=== PATIENT | male | born 1975 | race Caucasian/White ===

== ENCOUNTER 2017-02-22 10:42 | Observation (INO) | payer OTHER ==
[~2017-02-22] VITALS: Ht 182.9 cm; Wt 122.5 kg
[~2017-02-22 10:42] MED LIST: LISINOPRIL10 MG PO; MEDROL DOSEPAK1 PAC PO
--- NOTE | 2017-02-22 11:20 | ED GENERAL ADULT ---
History of Present Illness General Chief Complaint: Upper Respiratory Sx/Fever Stated Complaint: URI SINCE SAT/BILATERAL HAND SWELLING Source: patient Exam Limitations: no limitations Vital Signs & Intake/Output Vital Signs & Intake/Output Vital Signs Date Time Temp Pulse Resp B/P B/P Pulse O2 O2 Flow FiO2 Mean Ox Delivery Rate 02/22 1425 97.8 99 18 156/89 95 Room Air 02/22 1348 99.0 104 18 159/92 02/22 1348 99.0 104 18 159/92 95 Room Air 02/22 1130 Room Air 02/22 1056 98.2 123 20 153/89 96 Room Air Allergies Coded Allergies: NO KNOWN ALLERGIES (03/16/15) Reconcile Medications Diazepam 5 MG TABLET 1 TAB PO DAILY PRN ANXIETY (Reported) Hydrochlorothiazide 50 MG TABLET 1 TAB PO DAILY WATER PILL (Reported) Metoprolol Tartrate 50 MG TABLET 1 TAB PO BID HEART (Reported) Triage Note: PT PRESENTS TO ER C/O OF URI SYMPTOMS FOR A FEW DAYS. PT ALSO C/O OF HAND SWELLING SINCE YESTERDAY. PT STATES HE HAS NOT TAKEN HIS HCTZ OR METAPROLOL FOR TWO DAYS BECAUSE HE HAS HAD A COLD AND DIDN'T WANT COLD MEDS TO MESS WITH HTN MEDS. PT BP 153/89 Triage Nurses Notes Reviewed? yes Onset: Gradual Duration: day(s): (3) Timing: no prior history Injury Environment: home Severity: moderate Severity Numbers: 8 No Modifying Factors: none HPI: Patient is a 41-year-old male with history of hypertension who takes hydrochlorothiazide and metoprolol daily presenting to the emergency department with chief complaint of upper respiratory congestion, intermittently productive cough of yellow sputum, malaise, dry mouth and bilateral hand swelling has been going on for the past couple days. He reports symptoms started over the weekend with the cough. Also had associated chills and body aches. He's been taking [id number] medication to help with cough so he decided to stop taking his antihypertensive medications for the past 2 days. This morning when he woke up he noticed bilateral hand swelling. He tried taking Benadryl without relief. Denies any itchiness. Denies any trauma to the hands. Denies any history of IV drug abuse. He noticed redness over the palms of his hands several streaking upwards and he was concerned so he decided to come in for evaluation. denies any new exposures. Positive tactile fevers and chills. Reports social alcohol use. Denies drug use or smoking. No history similar episode with hands in the past. Denies any chest pain palpitations or shortness of breath. Positive sinus congestion. Positive runny nose. (HUMA BRITTON) Past History Travel History Traveled to [place] past 21 day No Medical History Any Pertinent Medical History? see below for history Neurological: NONE EENT: NONE Cardiovascular: hypertension Respiratory: NONE Gastrointestinal: NONE Hepatic: NONE Renal: NONE Musculoskeletal: NONE Psychiatric: NONE Endocrine: NONE Blood Disorders: NONE Cancer(s): NONE WHOLESALE ACCOUNT MANAGER/Reproductive: NONE Other Medical Hx: None per patient Tetanus Vaccine: 03/16/15 Surgical History Surgical History: N Psychosocial History What is your primary language Macedonian Tobacco Use: Never used Family History Hx Contributory? No (HUMA BRITTON) Review of Systems Review of Systems Constitutional: Reports: see HPI, chills, fever, malaise. Comments Review of systems: See HPI, All other systems negative. Constitutional, NO weight loss HEENT: No visual changes no sore throat Cardiovascular: No chest pain ,palpitation , orthopnea or ankle swelling Skin, no jaundice no rashes Respiratory: No hemoptysis GI: No nausea no vomiting : No dysuria No hematuria Muscle skeletal: no back pain, no neck pain, Neurologic: No numbness no confusion Psych: No stress anxiety or depression,. Heme/endocrine: No bruising no bleeding no polyuria or polydipsia Immunology: No splenectomy or history of AIDS (HUMA BRITTON) Physical Exam Physical Exam General Appearance: well developed/nourished, no apparent distress, alert, awake , comfortable Comments: Well-developed well-nourished person in no acute distress HEENT: extraocular motion intact, no nystagmus. Pupils equally round and reactive to light and accommodation. Nose is atraumatic. External auditory canal and Tympanic membranes clear. Pharynx is moderately erythematous, no exudates. Clear secretions without difficulty.. No swelling or edema. Dry oral mucosa. Neck: Supple, no lymphadenopathy, normal range of motion without pain or tenderness Back: Nontender, no CVA tenderness. Cardiovascular: Regular rate and rhythms no murmurs rubs or gallops, normal JVP Respiratory: Chest nontender. No respiratory distress.breath sounds diminished to auscultation bilaterally Extremity: Nonpitting edema noted over the hands bilaterally both dorsally and over the palmar aspect. Radial pulses are 2+ bilaterally. No edema appreciated over the lower extremities bilaterally. Pedal pulses are 2+ bilaterally. Limited range of motion of the hand secondary to edema. Unable to make a fist bilaterally. No specific pain with palpation over bilateral hands. Capillary refills intact in upper extremities. There is an erythema that covers both the dorsal and palmar aspect of bilateral hands with streaking noted up bilateral forearms. Streaking extends to the antecubital fossa bilaterally. Warm to palpation over these areas. Neuro: Alert oriented x3, motor sensory normal Skin: See extremity exam, otherwise No other appreciable rash on exposed skin, skin is warm and dry. Psych: Mood and affect is normal, memory and judgment is normal. Core Measures ACS in differential dx? No CVA/TIA Diagnosis: No Severe Sepsis Present: No Septic Shock Present: No (GREGORIO BUSBY,HUMA) Progress Differential Diagnoses I considered the following diagnoses in my evaluation of the patient: Allergic reaction, cellulitis, sepsis, upper respiratory infection, pneumonia, bronchitis , sinusitis Plan of Care: Orders Procedure Date/time Status CBC WITHOUT DIFFERENTIAL 02/23 0600 Active BASIC ELECTROLYTES PLUS BUN&CR 02/23 0600 Active Heart Healthy Diet 02/22 D Active FingerStick- Glucose 02/[address] in observation 02/22 1535 Active ED Holding Orders 02/22 1535 Active Vital Signs 02/22 1535 Active Code Status 02/22 1535 Active Pathway - chart 02/22 1516 Active Patient Data 02/22 1516 Active Code Status 02/22 1516 Complete Add-on Test (ER Only) 02/22 1257 Active GLYCOSYLATED HGB 02/22 1200 Complete URINE DRUG SCREEN FOR ER ONLY 02/22 1137 Complete URINALYSIS 02/22 1137 Complete BLOOD CULTURE 02/22 1136 Active COMPREHENSIVE METABOLIC PANEL 02/22 1136 Complete CBC WITHOUT DIFFERENTIAL 02/22 1136 Complete House Staff 02/22 UNK Active VTE Mechanical Prophylaxis 02/22 UNK Active Vital Signs 02/22 UNK Active Current Medications Sig/Hermes Start time Last Medication Dose Stop Time Status Admin Diazepam 5 MG DAILY 02/23 1000 UNVr (Valium) Hydrochlorothiazide 50 MG DAILY 02/23 1000 UNVr (Hydrodiuril) Methylprednisolone 40 MG Q8 02/22 2200 UNVr (Solumedrol) Metoprolol Tartrate 50 MG BID 02/22 2200 UNVr (Lopressor) Diphenhydramine HCl 50 MG Q6 02/22 1800 UNVr (Benadryl) Insulin Aspart 0 TIDAC 02/22 1700 UNVr (NovoLOG) Famotidine 20 MG DAILY 02/22 1620 UNVr (Pepcid) Sodium Chloride 1,000 ML Q10H 02/22 1615 UNVr (Normal Saline 0.9%) Acetaminophen 650 MG Q6P PRN 02/22 151 UNVr (Tylenol) Acetaminophen 1,000 MG Q6P PRN 02/22 1515 UNVr (Ofirmev) Oxycodone HCl 10 MG Q6P PRN 02/22 151 UNVr (Roxicodone) Laboratory Tests 02/22/17 1257: Urine Opiates Screen < 100.00, Methadone Screen 42, Barbiturate Screen < 60, Ur Phencyclidine Scrn < 6.00, Amphetamines Screen < 100, U Benzodiazepines Scrn > 800 H, Urine Cocaine Screen 75, Urine Cannabis Screen 13.10, Urine Color YEL, Urine Clarity CLEAR, Urine pH 6.0, Ur Specific [place] <= 1.005, Urine Protein NEG, Urine Ketones NEG, Urine Nitrite NEG, Urine Bilirubin NEG, Urine Urobilinogen 0.2, Ur Leukocyte Esterase NEG, Ur Microscopic EXAM NOT REQUIRED, Urine Hemoglobin NEG, Urine Glucose NEG 02/22/17 1200: Anion Gap 14, Estimated GFR > 60, BUN/Creatinine Ratio 18.3, Glucose 178 H, Hemoglobin A1c 7.0 H, Calcium 9.0, Total Bilirubin 1.8 H, AST 38, ALT 64, Alkaline Phosphatase 79, Total Protein 7.7, Albumin 4.4, Globulin 3.3, Albumin/ Globulin Ratio 1.3, CBC w Diff NO MAN DIFF REQ, RBC 5.17, MCV 86.7, MCH 30.3, RDW 13.1, MPV 8.2, Gran % 76.9 H, Lymphocytes % 16.1 L, Monocytes % 6.1, Eosinophils % 0.7, Basophils % 0.2, Absolute Granulocytes 7.5 H, Absolute Lymphocytes 1.6, Absolute Monocytes 0.6, Absolute Eosinophils 0.1, Absolute Basophils 0, PUBS MCHC 34.9 Microbiology 02/22 1208 BLOOD: Blood Culture - RECD 02/22 1200 BLOOD: Blood Culture - RECD Diagnostic Imaging: Viewed by Me: Radiology Read. Discussed w/RAD: Radiology Read. Radiology Impression: PATIENT: VIRY SPENCER PRESENT AGE: 41 PATIENT ACCOUNT NO: [id number] : 73 LOCATION: [facility] ORDERING PHYSICIAN: HUMA BUSBY SERVICE DATE: 02/22/17- EXAM TYPE: RAD - XRY-CHEST XRAY, PA AND LATERAL EXAMINATION: XR CHEST CLINICAL INFORMATION: Cough. Evaluate for pneumonia. COMPARISON: None TECHNIQUE: 2 views of the chest were obtained. FINDINGS: Lungs are symmetrically expanded and without consolidation. There is an equivocal finding of bronchial wall thickening in the perihilar regions. Minimal linear opacity of discoid atelectasis in the superior lingula. Cardiac silhouette is normal in size. The mediastinal and hilar contours are normal. There is no pleural effusion. Bones are unremarkable. IMPRESSION: 1. No evidence of pneumonia. 2. Possible bronchial wall thickening ( airway inflammation) in the perihilar regions. Initial ED EKG: none Comments: 02/22/2017 12:15:46 PM on arrival patient is afebrile, slightly hypertensive, patient has been off meds for 2 days. Patient does have diminished lung sounds with junky cough on exam. Patient will go for a chest x-ray to rule out pneumonia. Patient also does have edema to both hands with red streaking up the antecubital fossa. Unclear with is causing this versus patient is denying any IV drug abuse or new exposures. We will treat as if this is an allergic reaction and cellulitis. Patient getting IV Solu-Medrol, Benadryl and IV clindamycin. Blood cultures, CBC and CMP were sent. We'll reassess patient wants medications are administered. 02/22/2017 1:27:16 PM patient feeling slightly improved after IV hydration , Benadryl, Solu-Medrol and clindamycin. Patient still has worsening red streaks bilaterally on the forearms. No elevation of fever or white count at this time. Very concerned about spreading cellulitis and potentially sepsis. X-ray shows bronchial wall thickening. No signs of pneumonia. Likely bronchitis. 02/22/2017 2:38:57 PM patient will be admitted for observation for questionable allergic reaction versus cellulitis. Patient informed of all lab work results. All questions answered. (HUMA BRITTON) Departure Departure Time of Disposition: 1451 Disposition: STILL A PATIENT Condition: Stable Clinical Impression Primary Impression: Allergic reaction Qualifiers: Encounter type: initial encounter Qualified Code: T78.40XA - Allergy, unspecified, initial encounter Secondary Impressions: Bronchitis Cellulitis Qualifiers: Site of cellulitis: extremity Site of cellulitis of extremity: upper extremity Laterality: unspecified laterality Qualified Code: L03.119 - Cellulitis of unspecified part of limb Hyperglycemia Referrals: ALEN CASTLE MD (PCP/Family) Departure Forms: Customer Survey General Discharge Information Observation Note Spoke With: ALEN CASTLE MD Physician Advisor Notified: JOSTIN VARGAS,ALEXANDRO [address] Patient In: Non-ED OBS Care Area Rationale for Observation: My rational for observation is as follows . Patient requiring IV hydration, may need IV steroids, may need IV antibiotics. Repeat CBC to see if white blood cell count is climbing. Follow temperature. Discharge to send may be medically harmful. (HUMA BRITTON) PA/RN ANGIOGRAPHY Co-Sign Statement Statement: ED Attending supervision documentation- [X] I saw and evaluated the patient. I have also reviewed all the pertinent lab results and diagnostic results. I agree with the findings and the plan of care as documented in the PA's/RN ANGIOGRAPHY's documentation. [] I have reviewed the ED Record and agree with the PA's/RN ANGIOGRAPHY's documentation. [] Additions or exceptions (if any) to the PAs/RN ANGIOGRAPHY's note and plan are summarized below: [] (KAMILAH ALAS DO) Critical Care Note Critical Care Note Critical Care Time: non-applicable (HUMA BRITTON)
[2017-02-22] MEDS ORDERED: METOPROLOL TART50 M1 PO (11:44)
[2017-02-22] MEDS ORDERED: DIAZEPAM5 M1 PO (11:44)
[2017-02-22] MEDS ORDERED: HYDROCHLOROTHIA50 M1 PO (11:45)
[2017-02-22 12:14] LABS: ABSOLUTE BASOPHIL COUNT 0 /CUMM (0.0-0.2); ABSOLUTE EOSINOPHIL COUNT 0.1 /CUMM (0.0-0.7); ABSOLUTE GRANULOCYTE CT 7.5 /CUMM (1.4-6.5); ABSOLUTE LYMPH COUNT 1.6 /CUMM (1.2-3.4); ABSOLUTE MONOCYTE COUNT 0.6 /CUMM (0.10-0.60); BASOPHIL % 0.2 % (0.0-2.0); EOSINOPHIL % 0.7 % (0-5); GRANULOCYTE % 76.9 % (42.2-75.2); HEMATOCRIT 44.9 % (42-52); MEAN CORPUSCULAR HGB 30.3 PG (27.0-31.0); MEAN CORPUSCULAR HGB CONC 34.9 G/DL (33.0-37.0); MEAN CORPUSCULAR VOLUME 86.7 FL (80.0-94.0); MEAN PLATELET VOLUME 8.2 FL (7.4-10.4); PLATELET COUNT 213 /CUMM (130-400); RBC DISTRIBUTION WIDTH 13.1 % (11.5-14.5); RED BLOOD CELL CT 5.17 /CUMM (4.70-6.10); WHITE BLOOD CELL COUNT 9.8 /CUMM (4.8-10.8)
--- NOTE | 2017-02-22 13:25 | RADIOLOGY REPORT ---
EXAMINATION: XR CHEST CLINICAL INFORMATION: Cough. Evaluate for pneumonia. COMPARISON: None TECHNIQUE: 2 views of the chest were obtained. FINDINGS: Lungs are symmetrically expanded and without consolidation. There is an equivocal finding of bronchial wall thickening in the perihilar regions. Minimal linear opacity of discoid atelectasis in the superior lingula. Cardiac silhouette is normal in size. The mediastinal and hilar contours are normal. There is no pleural effusion. Bones are unremarkable. IMPRESSION: 1. No evidence of pneumonia. 2. Possible bronchial wall thickening (airway inflammation) in the perihilar regions.
--- NOTE | 2017-02-22 15:19 | History & Physical ---
See Addendum General Information and HPI MD Statement: I have seen and personally examined VIRY SPENCER and documented this H&P. The patient is a 41 year old M who presented with a patient stated chief complaint of [b/l rednness and swelling]. History of Present Illness: This is a 41 Y/O obese male with past medical history of hypertension who presented to the [facility] with bilateral hand swelling and redness on the forearm started in the morning, from which he woke up. The swelling is nontender but he is not able to flex his fingers. The patient symptoms started on Monday when he started having dry cough for which he takes symptomatic treatment with mild improvement. He did not take any antibiotics. His symptoms have resolved but his redness and swelling started in the morning as mentioned above. He has no recent changes in his soap, shampoo, or body lotion. He he is prone to get allergic reaction and prone to pollen dust allergies. He never experienced any pain like this in the past. Does not recall or gives any history of any new medication. He has been taking metoprolol and hydrochlorothiazide for the last 2 years without any complications He denies any changes in his voice, feeling of being clogged up in the throat. Allergies/Medications Allergies: Coded Allergies: NO KNOWN ALLERGIES (03/16/15) Home Med list Diazepam 5 MG TABLET 1 TAB PO DAILY PRN ANXIETY (Reported) Diphenhydramine HCl (Benadryl Allergy) 12.5 MG/5 ML LIQUID 5 ML PO Q6-8P allergy Hydrochlorothiazide 50 MG TABLET 1 TAB PO DAILY WATER PILL (Reported) Metformin HCl (Metformin HCl ER) 500 MG TAB.ER.24 1 TAB PO DAILY diabetes Please follow up hba1c in 3 months with PCP Methylprednisolone. 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 Home Who Do You Live With? spouse, child Services at Home: None Primary Language: Icelandic Smoking Status: Never Smoked ETOH Use: occasional use Illicit Drug Use: denies illicit drug use, marijuana, the patient takes marijuana for his chronic leg wound Review of Systems Review of Systems Constitutional: Reports: see HPI. Musculoskeletal: Reports: muscle pain, muscle stiffness. Skin: Reports: erythema, rash. Denies: change in hair/nails, dryness, jaundice. Exam & Diagnostic Data Last 24 Hrs of Vital Signs/I&O Vital Signs Date Time Temp Pulse Resp B/P B/P Pulse O2 O2 Flow FiO2 Mean Ox Delivery Rate 02/22 1425 97.8 99 18 156/89 95 Room Air 02/22 1348 99.0 104 18 159/92 02/22 1348 99.0 104 18 159/92 95 Room Air 02/22 1130 Room Air 02/22 1056 98.2 123 20 153/89 96 Room Air Intake & Output 02/22 1600 02/22 0800 02/22 0000 Intake Total 1000 Output Total Balance 1000 Intake, IV 1000 Patient 270 lb Weight Physical Exam General Appearance Alert, Oriented X3, Cooperative Skin erythematous rash on the left forearm Chronic leg laceration status post dog bite one year back on the left leg HEENT Atraumatic, PERRLA Neck Supple, No JVD, No thryomegaly Lymphatic Axillary nl, Cervical nl Cardiovascular Regular Rate, Normal S1, Normal S2 Lungs bilateral decreased airway entry site with wheezing Body Front and Back (Adult) 1) 1+ hand the swelling 2) 2+ swelling 3) Erythematous rash 4) Chronic left leg laceration wound Assessment/Plan Assessment: This is a 40-year-old male with a past medical history of hypertension hyperlipidemia who presented to the [facility] with bilateral hand swelling and redness on the left forearm Vitals at the time of admission showed Blood pressure 156/89, respiration rate of 18, pulse rate of 78, saturation of 96% on room air Labs shows Normal hemoglobin, hematocrit and WBC Basic electrolyte panel showed sodium of 134, potassium of 3.2, normal creatinine and BUNs Glucose of 178, HbA1c of 7 EKG shows normal sinus rhythm Assessment 1. Acute allergic reaction/angioedema of the hand in the absence of any airway obstruction. Most likely trigger for the allergic reaction can be seasonal, [place] dust and didn't recent fumigation at home 2. History of hypertension 3. Incidental finding DIABETES mellitus 4. History of dog bite with chronic laceration on the left leg 5.H/O acute bronchtis treated with conservative mnagemnet at home. Plan observe in for 23 hrs observation. I don't believe that the patient has cellulitis of the forearm but his swelling in the hand is worrisome as is not able to flex his fingers. He needs IV Solu- Medrol and Benadryl IV Solu-Medrol 40 every 8 with the next dose at 10 PM(patient received 125 mg in the ER) IV Benadryl By mouth Pepci NovoLog sliding scale, the patient needs to be discharged on an oral hypoglycemic agent at considering the new finding of HbA1c of 7 Watch off antibiotics for now but if cellulitis worsens can use PO Kelflex. Patient is full code DVT prophylaxis with subcutaneous Lovenox As Ranked By This Provider Problem List: 1. Hyperglycemia 2. Allergic reaction Qualifiers Encounter type: initial encounter Qualified Code: T78.40XA - Allergy, unspecified, initial encounter 3. Bronchitis Core Measures/Miscellaneous Acute Coronary Syndrome ACS Diagnosis: No Cerebrovascular Accident CVA/TIA Diagnosis: No Congestive Heart Failure CHF Diagnosis: No Venous Thromboembolism VTE Risk Factors: Acute medical illness, Age > 40 No [facility] VTE prophylaxis d/t: VTE low risk, No contraindications No VTE Pharm Prophylaxis d/t: VTE low risk, No contraindications VTE Diagnosis: No VTE Type: NONE VTE Confirmed by (Test): NONE Severe Sepsis Severe Sepsis Present: No Septic Shock Septic Shock Present: No Miscellaneous Documentation Attending Case Discussed With: TIN Primary Care Physician: ALEN CASTLE MD Patient sees these Specialists NONE Level of Patient Care: General Medicine
[2017-02-22] MEDS ORDERED: METFORMIN HCL500 M2 PO (17:00)
--- NOTE | 2017-02-22 17:02 | Patient Discharge Instructions ---
Discharge Instructions General Discharge Information You were seen/treated for: -Swelling of hands, most likely allergic reaction -Left arm rash -Newly diagnosed diabetes mellitus, please start taking metformin Special Instructions: Please follow up with PCP in 1 week Please check your hba1c in 3 months Diet Continue normal diet: No Recommended Diet: Diabetic, Heart Healthy Activity Full Activity/No Limits: Yes Acute Coronary Syndrome Inclusion Criteria At DC or during hospital stay patient has or had the following: ACS DIAGNOSIS No Discharge Core Measures Meds if any: Prescribed or Continued at Discharge Meds if any: NOT Prescribed or Continued at Discharge Congestive Heart Failure Inclusion Criteria At DC or during hospital stay patient has or had the following: CHF DIAGNOSIS No Discharge Core Measures Meds if any: Prescribed or Continued at Discharge Meds if any: NOT Prescribed or Continued at Discharge Cerebrovascular accident Inclusion Criteria At DC or during hospital stay patient has or had the following: CVA/TIA Diagnosis No Discharge Core Measures Meds if any: Prescribed or Continued at Discharge Meds if any: NOT Prescribed or Continued at Discharge Venous thromboembolism Inclusion Criteria VTE Diagnosis No VTE Type NONE VTE Confirmed by (Test) NONE Discharge Core Measures - Per Current guidelines, there needs to be overlap - treatment for the first 5 days of Warfarin therapy. - If discharged on Warfarin prior to 5 days of - overlap therapy, the patient will need to be - assessed for post discharge needs including - *Post discharge parental anticoagulation - *Warfarin and/or parental anticoagulation education - *Follow up date to check INR post discharge At least 5 days overlap therapy as Inpatient No Meds if any: Prescribed or Continued at Discharge Note: Overlap Therapy is Warfarin and Anticoagulant Meds if any: NOT Prescribed or Continued at Discharge
--- NOTE | 2017-02-22 19:09 | PN- Att Addend ---
Attending Addendum Attending Brief Note 41-year-old white male with history of hypertension on medications she hasn't taken 2 days because of "cold symptoms. One day he noticed swelling of both hands and red cummins going up the wrist to the forearm with no cuts. No fever patient came to the ER blood pressure was slightly elevated medications were given, his sugar was slightly elevated to potassium a little low but his white count is normal and no elevated eosinophils. The differentials are cellulitis versus an allergic reaction. In the ER he got IV steroids and IV antibiotics and Benadryl. He will be kept on observation and reevaluated in the morning need workup for allergies Laboratory Tests 02/22 02/22 1257 1200 Chemistry Sodium (137 - 145 mmol/L) 135 L Potassium (3.5 - 5.1 mmol/L) 3.2 L Chloride (98 - 107 mmol/L) 94 L Carbon Dioxide (22 - 30 mmol/L) 27 Anion Gap (5 - 16) 14 BUN (9 - 20 mg/dL) 11 Creatinine (0.7 - 1.2 mg/dL) 0.6 L Estimated GFR (>60 ml/min) > 60 BUN/Creatinine Ratio (7 - 25 %) 18.3 Glucose (65 - 99 mg/dL) 178 H Hemoglobin A1c (4.2 - 5.8 %) 7.0 H Calcium (8.4 - 10.2 mg/dL) 9.0 Total Bilirubin (0.2 - 1.3 mg/dL) 1.8 H AST (17 - 59 U/L) 38 ALT (21 - 72 U/L) 64 Alkaline Phosphatase (< 127 U/L) 79 Total Protein (6.3 - 8.2 g/dL) 7.7 Albumin (3.5 - 5.0 g/dL) 4.4 Globulin (1.9 - 4.2 gm/dL) 3.3 Albumin/Globulin Ratio (1.1 - 2.2 %) 1.3 Hematology CBC w Diff NO MAN DIFF REQ WBC (4.8 - 10.8 /CUMM) 9.8 RBC (4.70 - 6.10 /CUMM) 5.17 Hgb (14.0 - 18.0 G/DL) 15.7 Hct (42 - 52 %) 44.9 MCV (80.0 - 94.0 FL) 86.7 MCH (27.0 - 31.0 PG) 30.3 RDW (11.5 - 14.5 %) 13.1 Plt Count (130 - 400 /CUMM) 213 MPV (7.4 - 10.4 FL) 8.2 Gran % (42.2 - 75.2 %) 76.9 H Lymphocytes % (20.5 - 51.1 %) 16.1 L Monocytes % (1.7 - 9.3 %) 6.1 Eosinophils % (0 - 5 %) 0.7 Basophils % (0.0 - 2.0 %) 0.2 Absolute Granulocytes (1.4 - 6.5 /CUMM) 7.5 H Absolute Lymphocytes (1.2 - 3.4 /CUMM) 1.6 Absolute Monocytes (0.10 - 0.60 /CUMM) 0.6 Absolute Eosinophils (0.0 - 0.7 /CUMM) 0.1 Absolute Basophils (0.0 - 0.2 /CUMM) 0 PUBS MCHC (33.0 - 37.0 G/DL) 34.9 Immunology IgE Pending Toxicology Urine Opiates Screen (>2000 NG/ML) < 100.00 Methadone Screen (>300 NG/ML) 42 Barbiturate Screen (>200 NG/ML) < 60 Ur Phencyclidine Scrn (>25 NG/ML) < 6.00 Amphetamines Screen (>1000 NG/ML) < 100 U Benzodiazepines Scrn (>200 NG/ML) > 800 H Urine Cocaine Screen (>300 NG/ML) 75 Urine Cannabis Screen (>50 NG/ML) 13.10 Urines Urine Color (YEL,AMB,STR) YEL Urine Clarity (CLEAR) CLEAR Urine pH (5.0 - 8.0) 6.0 Ur Specific [place] (1.001 - 1.035) <= 1.005 Urine Protein (NEG,<30 MG/DL) NEG Urine Ketones (NEG) NEG Urine Nitrite (NEG) NEG Urine Bilirubin (NEG) NEG Urine Urobilinogen (0.1 - 1.0 EU/dl) 0.2 Ur Leukocyte Esterase (NEG) NEG Ur Microscopic EXAM NOT REQUIRED Urine Hemoglobin (NEG) NEG Urine Glucose (N MG/DL) NEG
[2017-02-22 19:51] VITALS: BP 122/80
--- NOTE | 2017-02-23 07:01 | Event Note ---
Event Note Event Note: 02/22/17 7pm: Patient was signed out to me by Dr. Anne. We are monitoring for improvement of bilateral hand swelling and erythema s/p steroids. 02/23/17 7am: Patient was comfortably sitting in bed eager to go, reports MARKED improvement in swelling, now he is able to make a fist. No erythema noted on both arms. I saw the patient with Dr. Lopez, and he is stable for discharge on medrol pack. Will also give him benadryl. As blood sugar was noted to be high [phone], will start pt on metformin. Will follow up with Dr. Lopez in 1 week. Diabetic teaching done by housing quality standard inspector. Lancet and glucometer script also given to patient. Pt agree to check his sugar daily.
[2017-02-23 07:06] VITALS: BP 170/80
[2017-02-23] MEDS ORDERED: BENADRYL A12.5 MG/5 PO (08:19)
[2017-02-23] MEDS ORDERED: MEDROL4 M2 PO (08:19)
[2017-02-23 08:33] LABS: ABSOLUTE BASOPHIL COUNT 0 /CUMM (0.0-0.2); ABSOLUTE EOSINOPHIL COUNT 0 /CUMM (0.0-0.7); ABSOLUTE GRANULOCYTE CT 13.4 /CUMM (1.4-6.5); ABSOLUTE LYMPH COUNT 1.1 /CUMM (1.2-3.4); ABSOLUTE MONOCYTE COUNT 0.4 /CUMM (0.10-0.60); BASOPHIL % 0 % (0.0-2.0); EOSINOPHIL % 0 % (0-5); GRANULOCYTE % 89.6 % (42.2-75.2); MEAN CORPUSCULAR HGB 30.6 PG (27.0-31.0); MEAN CORPUSCULAR HGB CONC 34.5 G/DL (33.0-37.0); MEAN CORPUSCULAR VOLUME 88.7 FL (80.0-94.0); MEAN PLATELET VOLUME 8.7 FL (7.4-10.4); PLATELET COUNT 254 /CUMM (130-400); RBC DISTRIBUTION WIDTH 13.3 % (11.5-14.5); RED BLOOD CELL CT 4.84 /CUMM (4.70-6.10)
[2017-02-23 08:55] VITALS: BP 148/90
--- NOTE | 2017-02-23 09:05 | PN- Att Addend ---
Attending Addendum Attending Brief Note Patient feeling and looking much better but the redness in the arms and hands disappeared the swelling is down. Signs are stable blood pressures improved with the medications and changes. Discussed with resident will discharge on a prednisone taper. Follow-up as an outpatient condition is stable Current Medications Sig/Hermes Start time Last Medication Dose Route Stop Time Status Admin Acetaminophen 650 MG Q6P PRN 02/22 1515 AC PO Acetaminophen 1,000 MG Q6P PRN 02/22 1515 AC IV Clindamycin 600 MG ONCE ONE 02/22 1230 DC 02/22 Dextrose/Water 50 ML IV 02/22 1259 1224 Diazepam 5 MG DAILY 02/23 1000 DC PO Diazepam 5 MG DAILY PRN 02/23 0000 AC 02/23 PO 0732 Diphenhydramine HCl 0 .STK-MED ONE 02/22 1833 DC .ROUTE Diphenhydramine HCl 0 .STK-MED ONE 02/22 1831 DC .ROUTE Diphenhydramine HCl 50 MG Q6 02/22 1800 AC 02/23 IV 0549 Diphenhydramine HCl 0 .STK-MED ONE 02/22 1215 DC .ROUTE Diphenhydramine HCl 0 .STK-MED ONE 02/22 1151 DC .ROUTE Diphenhydramine HCl 25 MG ONCE ONE 02/22 1145 DC 02/22 IV 02/22 1146 1221 Enoxaparin Sodium 40 MG DAILY 02/23 1000 AC 02/23 SC 0855 Famotidine 0 .STK-MED ONE 02/22 1635 DC PO Famotidine 20 MG DAILY 02/22 1620 AC 02/23 PO 0855 Hydrochlorothiazide 50 MG DAILY 02/23 1000 AC 02/23 PO 0856 Hydrochlorothiazide 50 MG ONCE ONE 02/22 1330 DC 02/22 PO 02/22 1331 1348 Insulin Aspart 2 UNITS ONCE ONE 02/23 0115 DC 02/23 SC 02/23 0116 0133 Insulin Aspart 2 UNITS ONCE ONE 02/22 2245 DC 02/22 SC 02/22 2246 2249 Insulin Aspart 0 TIDAC 02/22 1700 AC 02/23 SC 0855 Methylprednisolone 40 MG Q8 02/22 2200 AC 02/23 IV 0549 Methylprednisolone 0 .STK-MED ONE 02/22 1151 DC .ROUTE Methylprednisolone 125 MG ONCE ONE 02/22 1145 DC 02/22 IV 02/22 1146 1221 Metoprolol Tartrate 50 MG BID 02/22 2200 AC 02/23 PO 0855 Metoprolol Tartrate 50 MG ONCE ONE 02/22 1330 DC 02/22 PO 02/22 1331 1348 Metoprolol Tartrate 0 .STK-MED ONE 02/22 1330 DC PO Oxycodone HCl 10 MG Q6P PRN 02/22 1515 AC PO Potassium Chloride 0 .STK-MED ONE 02/22 1749 DC PO Potassium Chloride 20 MEQ ONCE ONE 02/22 1745 DC 02/22 PO 02/22 1746 1746 Potassium Chloride 0 .STK-MED ONE 02/22 1258 DC PO Potassium Chloride 40 MEQ ONCE ONE 02/22 1245 DC 02/22 PO 02/22 1246 1300 Sodium Chloride 1,000 ML Q10H 02/22 1615 DC 02/22 IV 2219 Sodium Chloride 1,000 ML BOLUS ONE 02/22 1445 DC 02/22 IV 02/22 1544 1451 Sodium Chloride 1,000 ML BOLUS ONE 02/22 1145 DC 02/22 IV 02/22 1244 1221 Laboratory Tests 02/23/17 0805: CBC w Diff Pending, WBC Pending, RBC Pending, Hgb Pending, Hct Pending, MCV Pending, MCH Pending, RDW Pending, Plt Count Pending, MPV Pending, PUBS MCHC Pending 02/22/17 1257: Urine Opiates Screen < 100.00, Methadone Screen 42, Barbiturate Screen < 60, Ur Phencyclidine Scrn < 6.00, Amphetamines Screen < 100, U Benzodiazepines Scrn > 800 H, Urine Cocaine Screen 75, Urine Cannabis Screen 13.10, Urine Color YEL, Urine Clarity CLEAR, Urine pH 6.0, Ur Specific [place] <= 1.005, Urine Protein NEG, Urine Ketones NEG, Urine Nitrite NEG, Urine Bilirubin NEG, Urine Urobilinogen 0.2, Ur Leukocyte Esterase NEG, Ur Microscopic EXAM NOT REQUIRED, Urine Hemoglobin NEG, Urine Glucose NEG 02/22/17 1200: Anion Gap 14, Estimated GFR > 60, BUN/Creatinine Ratio 18.3, Glucose 178 H, Hemoglobin A1c 7.0 H, Calcium 9.0, Magnesium 1.9, Total Bilirubin 1.8 H, AST 38, ALT 64, Alkaline Phosphatase 79, Total Protein 7.7, Albumin 4.4, Globulin 3.3, Albumin/Globulin Ratio 1.3, CBC w Diff NO MAN DIFF REQ, RBC 5.17, MCV 86.7, MCH 30.3, RDW 13.1, MPV 8.2, Gran % 76.9 H, Lymphocytes % 16.1 L, Monocytes % 6.1, Eosinophils % 0.7, Basophils % 0.2, Absolute Granulocytes 7.5 H, Absolute Lymphocytes 1.6, Absolute Monocytes 0.6, Absolute Eosinophils 0.1, Absolute Basophils 0, PUBS MCHC 34.9, IgE Pending Microbiology Date/Time Procedure - Status Source Growth 02/22 1208 Blood Culture - RECD BLOOD 02/22 1200 Blood Culture - RECD BLOOD Vital Signs Date Time Temp Pulse Resp B/P B/P Pulse O2 O2 Flow FiO2 Mean Ox Delivery Rate 02/23 0855 90 148/90 02/23 0706 97.9 84 20 170/80 96 Room Air 02/22 2219 87 122/80 02/22 1951 98.0 86 20 122/80 93 Room Air 02/22 1923 97.7 85 16 128/61 95 Room Air 02/22 1425 97.8 99 18 156/89 95 Room Air 02/22 1348 99.0 104 18 159/92 02/22 1348 99.0 104 18 159/92 95 Room Air 02/22 1130 Room Air 02/22 1056 98.2 123 20 153/89 96 Room Air Intake & Output 02/23 1600 02/23 0800 02/23 0000 Intake Total 1040 1240 Output Total Balance 1040 1240 Intake, IV 800 1000 Intake, Oral 240 240 Patient 270 lb Weight
== END 2017-02-23 11:02 ==
LOC: ERH 10:42 → ERHI 15:35 → ENRESERV 16:58 → 2NA 19:43 → ENPENDDIS 02-23 10:35 → 2NA 02-23 11:02
PROVIDERS: Internal Medicine Nephrology; Physician Assistant; ADMIT Internal Medicine
DX: T78.3XXA Angioneurotic edema, initial encounter (principal); E78.5 Hyperlipidemia, unspecified; I10 Essential (primary) hypertension; F12.90 Cannabis use, unspecified, uncomplicated; E11.9 Type 2 diabetes mellitus without complications
CPT/HCPCS: 6030; 36415; 80307; 81003; 82436; 87040; 96372; 96374; 96375; G0378; J0131; J1200; J1650; J2920; J2930